=== PATIENT | male | born 1995 | race African-American/Black ===

== ENCOUNTER 2022-08-11 16:41 | Inpatient (IN) | payer OTHER ==
[2022-08-11 17:58] VITALS: BMI 22.9
[2022-08-11] MEDS ORDERED: BENZOCAINE/MENTHOL (CHLORASEPTIC ) LOZENGE MM PRN (18:27)
[2022-08-11] MEDS ORDERED: P-EPHED 60MG/TRIPROLIDI 2.5MG TABLET PO PRN (18:27)
[2022-08-11] MEDS ORDERED: LOPERAMIDE HCL 2 MG CAPSULE PO PRN (18:27)
[2022-08-11] MEDS ORDERED: MAGNESIUM HYDROX 2400MG/30ML ORAL SUSPENSION 30 ML CUP PO PRN (18:27)
[2022-08-11] MEDS ORDERED: MAG HYDROX/AL HYDROX/SIMETH 30 ML UNIT-DOSE CUP PO PRN (18:27)
[2022-08-11] MEDS ORDERED: guaiFENesin 200 MG/10 ML 10 ML UNIT-DOSE CUPS PO PRN (18:27)
[2022-08-11] MEDS ORDERED: ACETAMINOPHEN 325 MG TABLET (FP) PO PRN (18:27)
[2022-08-11] MEDS ORDERED: POLYETHYLENE GLYCOL (HEALTHYLAX) 3350 17 GM PACKET PO PRN (18:27)
[2022-08-11] MEDS ORDERED: IBUPROFEN 400 MG TABLET (FP) PO PRN (18:27)
[2022-08-11] MEDS ORDERED: MELATONIN 5 MG TABLETS PO SCH (22:00)
[2022-08-11] MEDS ORDERED: TUBERCULIN PPD 5 TU/0.1ML VIAL ID ONE ×2 (22:36→23:15)
[2022-08-11] MEDS: THIAMINE HCL 100 MG TABLET (FP) PO SCH (22:41)
[2022-08-11] MEDS: PRENATAL VITAMINS W/ FOLIC ACID TABLET (FP) PO SCH (22:41)
[2022-08-12] MEDS: hydrOXYzine PAMOATE 25 MG CAPSULE (FP) PO PRN ×3 (03:57→21:12)
[2022-08-12] MEDS: PRENATAL VITAMINS W/ FOLIC ACID TABLET (FP) PO SCH (09:53)
[2022-08-12] MEDS: BUPRENORPHINE/NALOXONE 8 MG/2 MG FILM PACKET SL SCH (09:54)
[2022-08-12] MEDS ORDERED: QUEtiapine FUMARATE 100 MG TABLET (FP) PO SCH ×2 (10:00→22:00)
[2022-08-12] MEDS ORDERED: QUEtiapine FUMARATE 25 MG TABLET PO SCH (10:19)
[2022-08-12] MEDS: QUEtiapine FUMARATE 25 MG TABLET PO SCH ×2 (10:24→21:12)
[2022-08-12] MEDS: LITHIUM CARBONATE 300 MG CAPSULE PO SCH ×2 (10:52→21:11)
[2022-08-12 11:49] LABS: HEMATOCRIT 38.4 % (35.4-49); HEMOGLOBIN 11.8 GM/dL (11.7-16.9); MCH 22.5 pg (25.7-33.7); MCHC 30.6 g/dl (32.0-35.9); MEAN CELL VOLUME 73.5 fl (80-96); MEAN PLT VOLUME 7.4 fl (7.5-11.1); PLATELET COUNT 329 10^3/uL (134-434); RBC 5.22 M/mm3 (4.00-5.60); RDW 18.7 % (11.9-15.9); WHITE BLOOD COUNT 4.6 K/mm3 (4.0-10.0)
[2022-08-12 11:54] LABS: PH,URINE 7.5 (5.0-8.0); URINE APPEARANCE CLEAR; URINE BILIRUBIN NEGATIVE (NEGATIVE); URINE COLOR YELLOW; URINE GLUCOSE (UA) NEGATIVE (NEGATIVE); URINE KETONE NEGATIVE (NEGATIVE); URINE LEUK ESTERASE NEGATIVE (NEGATIVE); URINE NITRITE NEGATIVE (NEGATIVE); URINE PROTEIN NEGATIVE (NEGATIVE); URINE UROBILINOGEN 0.2 mg/dL (0.2-1.0)
[2022-08-12 12:00] LABS: ALBUMIN 3.5 g/dl (3.4-5.0); BLOOD UREA NITROGEN 12.5 mg/dL (7-18)
[2022-08-12 12:03] LABS: CREATININE 0.8 mg/dL (0.55-1.3)
[2022-08-12 12:04] LABS: TOT PROT 6.9 g/dl (6.4-8.2)
[2022-08-12 12:05] LABS: BILIRUBIN,TOTAL 0.3 mg/dL (0.2-1)
[2022-08-12 12:56] LABS: SYPHILIS W/ RPR CONF REACTIVE (NONREACTIVE)
[2022-08-12] MEDS: THIAMINE HCL 100 MG TABLET (FP) PO SCH (21:11)
[2022-08-12] MEDS: traZODone HCL 50 MG TABLET (FP) PO SCH (21:14)
[2022-08-12] MEDS: BENZTROPINE MESYLATE 1 MG TABLET PO SCH (21:14)
[2022-08-13] MEDS: NICOTINE POLACRILEX 2 MG GUM BC PRN ×2 (06:47→09:52)
[2022-08-13] MEDS: QUEtiapine FUMARATE 25 MG TABLET PO SCH ×2 (09:46→21:28)
[2022-08-13] MEDS: PRENATAL VITAMINS W/ FOLIC ACID TABLET (FP) PO SCH (09:47)
[2022-08-13] MEDS: BUPRENORPHINE/NALOXONE 8 MG/2 MG FILM PACKET SL SCH (09:47)
[2022-08-13] MEDS: LITHIUM CARBONATE 300 MG CAPSULE PO SCH ×2 (09:47→21:28)
[2022-08-13] MEDS: hydrOXYzine PAMOATE 25 MG CAPSULE (FP) PO PRN ×2 (15:12→21:28)
[2022-08-13] MEDS: BENZTROPINE MESYLATE 1 MG TABLET PO SCH (21:28)
[2022-08-13] MEDS: traZODone HCL 50 MG TABLET (FP) PO SCH (21:28)
[2022-08-13] MEDS: THIAMINE HCL 100 MG TABLET (FP) PO SCH (21:28)
[2022-08-14] MEDS: LITHIUM CARBONATE 300 MG CAPSULE PO SCH ×2 (09:55→21:19)
[2022-08-14] MEDS: PRENATAL VITAMINS W/ FOLIC ACID TABLET (FP) PO SCH (09:55)
[2022-08-14] MEDS: QUEtiapine FUMARATE 50 MG TABLET PO SCH ×2 (09:55→21:19)
[2022-08-14] MEDS: BUPRENORPHINE/NALOXONE 8 MG/2 MG FILM PACKET SL SCH (09:55)
[2022-08-14] MEDS: hydrOXYzine PAMOATE 25 MG CAPSULE (FP) PO PRN ×2 (09:56→21:19)
[2022-08-14] MEDS: NICOTINE 10 MG CARTRIDGE (INHALER) IH PRN (11:12)
[2022-08-14] MEDS: NICOTINE POLACRILEX 2 MG GUM BC PRN (12:20)
[2022-08-14] MEDS: THIAMINE HCL 100 MG TABLET (FP) PO SCH (21:19)
[2022-08-14] MEDS: traZODone HCL 50 MG TABLET (FP) PO SCH (21:19)
[2022-08-14] MEDS: BENZTROPINE MESYLATE 1 MG TABLET PO SCH (21:19)
[2022-08-15] MEDS: NICOTINE 10 MG CARTRIDGE (INHALER) IH PRN ×2 (08:02→12:39)
[2022-08-15] MEDS: LITHIUM CARBONATE 300 MG CAPSULE PO SCH ×2 (09:49→21:38)
[2022-08-15] MEDS: PRENATAL VITAMINS W/ FOLIC ACID TABLET (FP) PO SCH (09:50)
[2022-08-15] MEDS: BUPRENORPHINE/NALOXONE 8 MG/2 MG FILM PACKET SL SCH (09:50)
[2022-08-15] MEDS: QUEtiapine FUMARATE 50 MG TABLET PO SCH ×2 (09:50→21:38)
[2022-08-15] MEDS ORDERED: PENICILLIN G BENZATHINE 2,400,000 UNIT/4 ML PFS IM ONE (11:45)
[2022-08-15] MEDS: THIAMINE HCL 100 MG TABLET (FP) PO SCH (21:37)
[2022-08-15] MEDS: BENZTROPINE MESYLATE 1 MG TABLET PO SCH (21:38)
[2022-08-15] MEDS: hydrOXYzine PAMOATE 25 MG CAPSULE (FP) PO PRN (21:38)
[2022-08-15] MEDS: traZODone HCL 50 MG TABLET (FP) PO SCH (21:38)
[2022-08-16] MEDS: NICOTINE 10 MG CARTRIDGE (INHALER) IH PRN ×2 (07:13→15:10)
[2022-08-16] MEDS: NICOTINE POLACRILEX 2 MG GUM BC PRN (07:13)
[2022-08-16] MEDS: LITHIUM CARBONATE 300 MG CAPSULE PO SCH ×2 (09:52→21:25)
[2022-08-16] MEDS: QUEtiapine FUMARATE 50 MG TABLET PO SCH ×2 (09:52→21:25)
[2022-08-16] MEDS: PRENATAL VITAMINS W/ FOLIC ACID TABLET (FP) PO SCH (09:53)
[2022-08-16] MEDS: BUPRENORPHINE/NALOXONE 8 MG/2 MG FILM PACKET SL SCH (09:53)
[2022-08-16] MEDS: hydrOXYzine PAMOATE 25 MG CAPSULE (FP) PO PRN ×2 (15:10→21:25)
[2022-08-16] MEDS: BENZTROPINE MESYLATE 1 MG TABLET PO SCH (21:25)
[2022-08-16] MEDS: THIAMINE HCL 100 MG TABLET (FP) PO SCH (21:25)
[2022-08-16] MEDS: traZODone HCL 50 MG TABLET (FP) PO SCH (21:25)
[2022-08-17] MEDS: NICOTINE POLACRILEX 2 MG GUM BC PRN ×2 (07:25→14:05)
[2022-08-17] MEDS: NICOTINE 10 MG CARTRIDGE (INHALER) IH PRN ×2 (07:25→12:10)
[2022-08-17] MEDS: QUEtiapine FUMARATE 50 MG TABLET PO SCH ×2 (09:43→21:13)
[2022-08-17] MEDS: LITHIUM CARBONATE 300 MG CAPSULE PO SCH ×2 (09:43→21:14)
[2022-08-17] MEDS: PRENATAL VITAMINS W/ FOLIC ACID TABLET (FP) PO SCH (09:44)
[2022-08-17] MEDS: BUPRENORPHINE/NALOXONE 8 MG/2 MG FILM PACKET SL SCH (09:44)
[2022-08-17] MEDS: hydrOXYzine PAMOATE 25 MG CAPSULE (FP) PO PRN (10:57)
[2022-08-17] MEDS: traZODone HCL 50 MG TABLET (FP) PO SCH (21:13)
[2022-08-17] MEDS: THIAMINE HCL 100 MG TABLET (FP) PO SCH (21:13)
[2022-08-17] MEDS: BENZTROPINE MESYLATE 1 MG TABLET PO SCH (21:13)
[2022-08-18] MEDS: hydrOXYzine PAMOATE 25 MG CAPSULE (FP) PO PRN ×3 (03:57→21:51)
[2022-08-18] MEDS: NICOTINE 10 MG CARTRIDGE (INHALER) IH PRN ×2 (07:03→17:23)
[2022-08-18] MEDS: QUEtiapine FUMARATE 50 MG TABLET PO SCH ×2 (09:42→21:51)
[2022-08-18] MEDS: PRENATAL VITAMINS W/ FOLIC ACID TABLET (FP) PO SCH (09:42)
[2022-08-18] MEDS: LITHIUM CARBONATE 300 MG CAPSULE PO SCH ×2 (09:42→21:51)
[2022-08-18] MEDS: BUPRENORPHINE/NALOXONE 4 MG/1 MG FILM PACKET SL SCH (10:10)
[2022-08-18] MEDS: THIAMINE HCL 100 MG TABLET (FP) PO SCH (21:51)
[2022-08-18] MEDS: traZODone HCL 50 MG TABLET (FP) PO SCH (21:51)
[2022-08-18] MEDS: BENZTROPINE MESYLATE 1 MG TABLET PO SCH (21:51)
[2022-08-18] MEDS: BUPRENORPHINE/NALOXONE 8 MG/2 MG FILM PACKET SL SCH (21:54)
[2022-08-19] MEDS: NICOTINE 10 MG CARTRIDGE (INHALER) IH PRN (07:08)
[2022-08-19] MEDS: NICOTINE POLACRILEX 2 MG GUM BC PRN (07:08)
[2022-08-19] MEDS: LITHIUM CARBONATE 300 MG CAPSULE PO SCH ×2 (09:48→21:23)
[2022-08-19] MEDS: QUEtiapine FUMARATE 50 MG TABLET PO SCH ×2 (09:48→21:23)
[2022-08-19] MEDS: BUPRENORPHINE/NALOXONE 4 MG/1 MG FILM PACKET SL SCH (09:48)
[2022-08-19] MEDS: PRENATAL VITAMINS W/ FOLIC ACID TABLET (FP) PO SCH (09:48)
[2022-08-19] MEDS: hydrOXYzine PAMOATE 25 MG CAPSULE (FP) PO PRN (12:52)
[2022-08-19] MEDS: BUPRENORPHINE/NALOXONE 8 MG/2 MG FILM PACKET SL SCH (21:23)
[2022-08-19] MEDS: BENZTROPINE MESYLATE 1 MG TABLET PO SCH (21:23)
[2022-08-19] MEDS: THIAMINE HCL 100 MG TABLET (FP) PO SCH (21:23)
[2022-08-19] MEDS: traZODone HCL 50 MG TABLET (FP) PO SCH (21:23)
[2022-08-20] MEDS: NICOTINE POLACRILEX 2 MG GUM BC PRN (06:52)
[2022-08-20] MEDS: NICOTINE 10 MG CARTRIDGE (INHALER) IH PRN ×3 (06:52→18:09)
[2022-08-20] MEDS: LITHIUM CARBONATE 300 MG CAPSULE PO SCH ×2 (09:59→21:30)
[2022-08-20] MEDS: QUEtiapine FUMARATE 50 MG TABLET PO SCH ×2 (10:00→21:28)
[2022-08-20] MEDS: PRENATAL VITAMINS W/ FOLIC ACID TABLET (FP) PO SCH (10:00)
[2022-08-20] MEDS: hydrOXYzine PAMOATE 25 MG CAPSULE (FP) PO PRN ×2 (10:00→18:09)
[2022-08-20] MEDS: BUPRENORPHINE/NALOXONE 4 MG/1 MG FILM PACKET SL SCH (10:01)
[2022-08-20] MEDS: THIAMINE HCL 100 MG TABLET (FP) PO SCH (21:28)
[2022-08-20] MEDS: traZODone HCL 50 MG TABLET (FP) PO SCH (21:28)
[2022-08-20] MEDS: BENZTROPINE MESYLATE 1 MG TABLET PO SCH (21:28)
[2022-08-20] MEDS: BUPRENORPHINE/NALOXONE 8 MG/2 MG FILM PACKET SL SCH (21:29)
[2022-08-21] MEDS: hydrOXYzine PAMOATE 25 MG CAPSULE (FP) PO PRN ×2 (06:10→21:24)
[2022-08-21] MEDS: NICOTINE 10 MG CARTRIDGE (INHALER) IH PRN (06:11)
[2022-08-21] MEDS: NICOTINE POLACRILEX 2 MG GUM BC PRN (06:11)
[2022-08-21] MEDS: BUPRENORPHINE/NALOXONE 4 MG/1 MG FILM PACKET SL SCH (09:40)
[2022-08-21] MEDS: LITHIUM CARBONATE 300 MG CAPSULE PO SCH ×2 (09:40→21:26)
[2022-08-21] MEDS: PRENATAL VITAMINS W/ FOLIC ACID TABLET (FP) PO SCH (09:40)
[2022-08-21] MEDS: QUEtiapine FUMARATE 50 MG TABLET PO SCH (09:41)
[2022-08-21] MEDS: BENZTROPINE MESYLATE 1 MG TABLET PO SCH (21:24)
[2022-08-21] MEDS: traZODone HCL 50 MG TABLET (FP) PO SCH (21:24)
[2022-08-21] MEDS: THIAMINE HCL 100 MG TABLET (FP) PO SCH (21:24)
[2022-08-21] MEDS: BUPRENORPHINE/NALOXONE 8 MG/2 MG FILM PACKET SL SCH (21:25)
[2022-08-21] MEDS: QUEtiapine FUMARATE 100 MG TABLET (FP) PO SCH (21:25)
[2022-08-21] MEDS ORDERED: LITHIUM CARBONATE 300 MG CAPSULE PO SCH (22:00)
[2022-08-22] MEDS: NICOTINE 10 MG CARTRIDGE (INHALER) IH PRN ×4 (07:19→21:10)
[2022-08-22] MEDS: LITHIUM CARBONATE 300 MG CAPSULE PO SCH ×3 (07:20→21:11)
[2022-08-22] MEDS: PRENATAL VITAMINS W/ FOLIC ACID TABLET (FP) PO SCH (09:50)
[2022-08-22] MEDS: BUPRENORPHINE/NALOXONE 8 MG/2 MG FILM PACKET SL SCH ×2 (09:51→21:11)
[2022-08-22] MEDS ORDERED: LITHIUM CARBONATE 300 MG CAPSULE PO SCH (10:00)
[2022-08-22] MEDS: hydrOXYzine PAMOATE 25 MG CAPSULE (FP) PO PRN ×2 (11:24→21:11)
[2022-08-22] MEDS ORDERED: PENICILLIN G BENZATHINE 2,400,000 UNIT/4 ML PFS IM ONE (11:47)
[2022-08-22] MEDS: NICOTINE POLACRILEX 2 MG GUM BC PRN (12:23)
[2022-08-22] MEDS: QUEtiapine FUMARATE 100 MG TABLET (FP) PO SCH (21:11)
[2022-08-22] MEDS: traZODone HCL 50 MG TABLET (FP) PO SCH (21:11)
[2022-08-22] MEDS: THIAMINE HCL 100 MG TABLET (FP) PO SCH (21:11)
[2022-08-22] MEDS: BENZTROPINE MESYLATE 1 MG TABLET PO SCH (21:11)
[2022-08-23] MEDS: LITHIUM CARBONATE 300 MG CAPSULE PO SCH ×3 (06:19→21:37)
[2022-08-23] MEDS: NICOTINE 10 MG CARTRIDGE (INHALER) IH PRN ×2 (06:20→13:24)
[2022-08-23] MEDS: PRENATAL VITAMINS W/ FOLIC ACID TABLET (FP) PO SCH (09:59)
[2022-08-23] MEDS: BUPRENORPHINE/NALOXONE 8 MG/2 MG FILM PACKET SL SCH ×2 (10:00→21:38)
[2022-08-23] MEDS: QUEtiapine FUMARATE 100 MG TABLET (FP) PO SCH (21:37)
[2022-08-23] MEDS: traZODone HCL 50 MG TABLET (FP) PO SCH (21:37)
[2022-08-23] MEDS: THIAMINE HCL 100 MG TABLET (FP) PO SCH (21:37)
[2022-08-23] MEDS: BENZTROPINE MESYLATE 1 MG TABLET PO SCH (21:37)
[2022-08-23] MEDS: hydrOXYzine PAMOATE 25 MG CAPSULE (FP) PO PRN (21:38)
[2022-08-24] MEDS: NICOTINE 10 MG CARTRIDGE (INHALER) IH PRN ×2 (06:27→21:32)
[2022-08-24] MEDS: LITHIUM CARBONATE 300 MG CAPSULE PO SCH ×3 (06:27→21:31)
[2022-08-24] MEDS: PRENATAL VITAMINS W/ FOLIC ACID TABLET (FP) PO SCH (09:15)
[2022-08-24] MEDS: BUPRENORPHINE/NALOXONE 8 MG/2 MG FILM PACKET SL SCH ×2 (09:15→21:31)
[2022-08-24] MEDS: THIAMINE HCL 100 MG TABLET (FP) PO SCH (21:30)
[2022-08-24] MEDS: QUEtiapine FUMARATE 100 MG TABLET (FP) PO SCH (21:31)
[2022-08-24] MEDS: BENZTROPINE MESYLATE 1 MG TABLET PO SCH (21:31)
[2022-08-24] MEDS: traZODone HCL 50 MG TABLET (FP) PO SCH (21:31)
[2022-08-24] MEDS: hydrOXYzine PAMOATE 25 MG CAPSULE (FP) PO PRN (21:31)
[2022-08-25] MEDS: LITHIUM CARBONATE 300 MG CAPSULE PO SCH (06:42)
[2022-08-25 06:54] VITALS: BP 100/62; PULSE 96; RESP 17; TEMP 98
[2022-08-25] MEDS: BUPRENORPHINE/NALOXONE 8 MG/2 MG FILM PACKET SL SCH (10:29)
[2022-08-25] MEDS: PRENATAL VITAMINS W/ FOLIC ACID TABLET (FP) PO SCH (10:29)
[2022-08-29] MEDS ORDERED: PENICILLIN G BENZATHINE 2,400,000 UNIT/4 ML PFS IM ONE (11:46)
== END 2022-08-25 12:58 | DRG 895 ==
LOC: YASAS 16:41 → Y3E 22:21
PROVIDERS: ADMIT Allergy & Immunology; ATTEND Psychiatry & Neurology Pain Medicine
PROC: HZ42ZZZ Group Counseling for Substance Abuse Treatment, Cognitive-Behavioral (ICD-10-PCS; principal; 2022-08-11)
DX: F11.20 Opioid dependence, uncomplicated (principal); F14.20 Cocaine dependence, uncomplicated; F19.282 Other psychoactive substance dependence with psychoactive substance-induced sleep disorder; F12.20 Cannabis dependence, uncomplicated; F17.210 Nicotine dependence, cigarettes, uncomplicated; F31.9 Bipolar disorder, unspecified; F25.9 Schizoaffective disorder, unspecified; F19.24 Other psychoactive substance dependence with psychoactive substance-induced mood disorder; F41.9 Anxiety disorder, unspecified; A53.9 Syphilis, unspecified; B18.2 Chronic viral hepatitis C; R45.850 Homicidal ideations; Z28.310 Unvaccinated for COVID-19; Z86.73 Personal history of transient ischemic attack (TIA), and cerebral infarction without residual deficits; Z91.51 Personal history of suicidal behavior; Z99.89 Dependence on other enabling machines and devices; Z59.00 Homelessness unspecified
CPT/HCPCS: 36415; 80053; 80178; 81003; 85027; 86593; 86780; 86803; 87522; C9803-CS; U0003; U0005